=== PATIENT | male | born 1970 | race Caucasian/White ===

== ENCOUNTER → 2019-11-22 09:38 | Outpatient (CLI) | payer MEDICAID ==
[2019-09-07 17:05] VITALS: BMI 31.4
[~2019-11-22 09:38] MED LIST: ABILIFY20 MG PO; BENTYL 20 MG TA20 MG PO; CRESTOR20 MG PO; FETZIMA40 MG PO; HYDROCODONE-APA1 TAB PO; LIDOCAINE50 GM TOPICAL; ULTRAM50 MG PO; VALIUM10 MG PO; ZOFRAN ODT4 MG/UDTAB PO; ZOFRAN4 MG PO
== END | disposition home or self-care (01) ==
LOC: D.NM 09:30
PROVIDERS: ATTEND Surgery
DX: R10.11 Right upper quadrant pain (principal)